=== PATIENT | male | born 1965 | race Caucasian/White ===

== ENCOUNTER 2022-05-08 07:54 | Outpatient (CLI) | payer BC, SELFPAY ==
--- NOTE | 2022-05-08 08:00 | CRLHL7_ITS ---
For Patients: As a result of the Cures Act, medical imaging exams and procedure reports are released immediately into your electronic medical record. You may view this report before your referring provider. If you have questions, please contact your health care provider. Indication: Sinusitis Technique: Performed without IV contrast Comparison: None available Findings: Frontal sinuses: Minimal mucosal thickening within the inferior frontal sinuses. Ethmoid sinuses: Mild mucosal thickening within both ethmoid sinuses. Maxillary sinuses: Near complete opacification of the left maxillary sinus with obstruction of the sinus drainage pathway. Mild mucosal thickening right maxillary sinus with patency of the right sinus drainage pathway. Sphenoid sinuses: Mild mucosal thickening is present. There is partial obstruction of the right sphenoethmoidal recess and patency of the left sphenoethmoidal recesses. Nasal Cavity: Extensive opacification of the left nasal cavity noted with obscuration of the turbinate mucosa. Mild nodularity of the inferior turbinates mucosa on the right. Rightward nasal septal deviation. No TMJ abnormalities identified. The visualized portions of the orbits, intracranial contents and upper soft tissue neck are grossly negative. Impression: 1. Severe left maxillary sinus disease with obstruction of the sinus drainage pathway. There is adjacent extensive opacification of the left nasal cavity which could represent mucus or polyps. 2. Mild sinus disease elsewhere. Rightward curvature of the nasal septum. Please note that all CT scans at this facility use dose modulation, iterative reconstruction, and/or weight-based dosing when appropriate to reduce radiation dose to as low as reasonably achievable. Dictated by Semaj Blanchard MD @ 05/08/2022 8:56:28 AM (Electronically Signed)
== END 2022-05-08 07:55 | disposition home or self-care (01) ==
LOC: CT 07:54
PROVIDERS: PCP Family Medicine; Visit Provider Otolaryngology
DX: J34.89 Other specified disorders of nose and nasal sinuses (principal); J32.0 Chronic maxillary sinusitis; J34.2 Deviated nasal septum; Z87.09 Personal history of other diseases of the respiratory system
CPT/HCPCS: 70486

== ENCOUNTER 2022-05-22 08:19 | Outpatient (CLI) | payer BC, SELFPAY ==
[2022-05-22 08:46] LABS: Hemoglobin A1C* 6.4 % (0-5.6)
[2022-05-22 15:02] LABS: Glucose* 126 mg/dL (60-115)
--- OUTSIDE RECORDS SUMMARY | 2022-06-11 18:24 | XMS_ITS | Encounter Summary ---
:1965 Author Organization [facility] Address [address] [place] [address] Care Team Providers Name Role Phone Unavailable Primary Care Provider Unavailable Reason for Visit Outpatient (Routine) - Closed Specialty Diagnoses / Procedures Referred By Contact Refer red To Contact Diagnoses Apnea Sleep Obstructive Maggie Doshi M.D., [facility] Procedures Polysomnography (PSG): Full PAP Trial; CPAP, Flex, Bilevel S Mode DE PSG >=6 YRS W CPAP M.P.H. [address], [place] [phone] Referral ID Status Reason Start Date Expiration Date Visits Requ ested Visits Authorized [id number] Closed 05/17/2021 07/15/2021 1 1 Encounter Details Date Type Department Care Team Description 05/30/2021 Diagnostic Department of Sleep Maggie Doshi Apne a Sleep Obstructive Medicine in [place], M.P .H. [place] [address] [address] [facility] [place] [phone] Social History Tobacco Use Types Packs/Day Years Used Date Smoking Tobacco: Former Cigarettes Quit : 12/04/2016 Smokeless Tobacco: Never Alcohol Habits Answer Date Recorded How often do you have a drink containing alcohol? 2-4 times a month 05/10/2021 How many drinks containing alcohol do you have on a 1 or 2 05/10/2021 typical day when you are drinking? How often do you have six or more drinks on one Less than mo nthly 05/10/2021 occasion? Comment: Not asked Social Isolation Answer Date Recorded In a typical week, how many times do you More than three cailin es a week 05/10/2021 talk on the phone with family, friends, or neighbors? How often do you get together with friends Twice a week 05/10/2021 or relatives? How often do you attend worship or Never 2020 christian services? Do you belong to any clubs or No 05/10/2021 organizations such as worship groups, unions, fraternal or athletic groups, or school groups? How often do you attend meetings of the 1 to 4 times per yea r 05/10/2021 clubs or organizations you belong to? Are you now , , , 05/10/2021 , never or living with a partner? Physical Activity Answer Date Recorded On average, how many days per week do you engage in moderate to 1 day 05/10/2021 strenuous exercise (like walking fast, running, jogging, dancing, swimming, biking, or other activities that cause a light or heavy sweat)? On average, how many minutes do you engage in exercise at th is 10 min 05/10/2021 level? Stress Answer Date Recorded Do you feel stress - tense, restless, nervous, or anxious, R ather much 05/10/2021 or unable to sleep at night because your mind is troubled all the time - these days? Financial Resource Strain Answer Date Recorded How hard is it for you to pay for the very basics like Not h shellie at all 05/10/2021 food, housing, medical care, and heating? Food Insecurity Answer Date Recorded Within the past 12 months, you worried that your food would Never true 05/10/2021 run out before you got money to buy more. Within the past 12 months, the food you bought just didn't N ever true 05/10/2021 last and you didn't have money to get more. Transportation Needs Answer Date Recorded In the past 12 months, has lack of transportation kept you f rom No 05/10/2021 medical appointments or from getting medications? In the past 12 months, has lack of transportation kept you f rom No 05/10/2021 meetings, work, or getting things needed for daily living? Housing Stability Answer Date Recorded In the last 12 months, was there a time when you were not No 05/10/2021 able to pay the mortgage or rent on time? In the last 12 months, how many places have you lived? Not a sked In the last 12 months, was there a time when you did not hav e No 05/10/[address] to sleep or slept in a senior living (including now)? Education Answer Date Recorded What is the highest level of school Bachelor's degree (e.g., BA, AB, 05/10/2021 you have completed or the highest BS) degree you have received? Sex Assigned at Date Recorded Male 09/17/2021 9:13 AM [employer] documented as of this encounter Plan of Treatment Not on filedocumented as of this encounter Procedures Procedure Name Priority Date/Time Associated Diagnosis Comme nts DE PSG >=6 YRS W Routine 05/31/2021 4:03 AM Apnea Sleep Resul ts for this CPAP CDT Obstructive procedure are i n the results section. documented in this encounter Results Polysomnography (PSG): Full PAP Trial; CPAP, Flex, Bilevel S Mode (05/31/2021 4:03 AM CDT) Specimen (Source) Anatomical Location Collection Method / Collectio n Time Received Time / Laterality Volume Narrative ONBASE - 06/04/2021 1:33 PM CDT THERAPEUTIC PAP TITRATION Summary A therapeutic trial of CPAP (continuous positive airway pressure) was tried, using a Dora View size medium in [facility]. ??Using CPAP at a pressure of Twelve cm H2O with a CFlex of 0, the disordered breathing noted during the diagnostic study was well-controlled . ??Supplemental oxygen was not used.. ??A chin-strap was not used. ??Ox ygen saturation remained at or above an SpO2 of 90%, 100% of the time. ?? Clinical Interpretation Successful trial of positive airway pres sure (PAP). ??Study limitations: No technical limitations occurred during study.. ??Patient should be treated with an Dora View size medium m ask set to 12 cm water pressure in accordance with this titration study. Maggie Doshi M.D., M.P.[facility] SLEEP CENTER ORDERABLES Performing Organization Address City/State/ZIP Code Phon e Number ONBASE ONBASE NA documented in this encounter Visit Diagnoses Diagnosis Apnea Sleep Obstructive documented in this encounter
--- OUTSIDE RECORDS SUMMARY | 2022-06-11 18:24 | XMS_ITS | Encounter Summary ---
:1965 Author Organization [facility] Address [address] [place] [address] Care Team Providers Name Role Phone Unavailable Primary Care Provider Unavailable Reason for Referral Outpatient (Routine) - Closed Specialty Diagnoses / Procedures Referred By Contact Refer red To Contact Sleep Medicine Maggie Doshi M.D., [facility] M[facility] [address] [place] [phone] Referral ID Status Reason Start Date Expiration Date Visits Requ ested Visits Authorized [id number] Closed 06/21/2021 06/21/2022 1 1 Reason for Visit Reason Comments Sleep study results Outpatient (Routine) - Closed Specialty Diagnoses / Procedures Referred By Contact Refer red To Contact Sleep Medicine Maggie Doshi M.D., [facility] Rees M[facility] [address] [place] [address] Referral ID Status Reason Start Date Expiration Date Visits Requ ested Visits Authorized [id number] Closed 05/10/2021 05/10/2022 1 1 Encounter Details Date Type Department Care Team Description 06/21/2021 Office Visit Department of Maggie Doshi, Apnea Slee p Obstructive Neurology in [place], M.[facility] (Primary Dx) [place], [place] [address] [phone] Social History Tobacco Use Types Packs/Day Years [...] or relatives? How often do you attend bahai or Never 2020 denominational services? Do you belong to any clubs or No 05/10/2021 organizations such as bahai groups, unions, fraternal or athletic groups, or [...] place to sleep or slept in a half-way (including now)? Education Answer Date Recorded What is the highest level of school Bachelor's degree (e.g., BA, AB, 05/10/2021 you have completed or the highest BS) degree you have received? Sex Assigned at Date Recorded Male 09/17/2021 9:13 AM [employer]ERSONAL[employer] documented as of this encounter Last Filed Vital Signs Vital Sign Reading Time Taken Comments Blood Pressure 137/85 06/21/2021 8:30 AM CDT Pulse 81 06/21/2021 8:30 AM CDT Temperature - - Respiratory Rate - - Oxygen Saturation - - Inhaled Oxygen Concentration - - Weight 145 kg (319 lb 7.1 oz) 06/21/2021 8:30 AM CDT Height - - Body Mass Index 42.15 05/10/2021 9:12 AM CDT documented in this encounter Progress Notes Maggie Doshi M.D., M.P.H. - 06/21/2021 8:45 AM CDT Sleep Clinic SUBJECTIVE HISTORY OF PRESENT ILLNESS This patient returns after his CPAP titration. Prior diagnostic study showed an apnea-hypopnea indexof over 52. The full night of titration performed on 05/31/2021 found that with a an Dora View, fullface mask and pressure set to 12 cm water pressure he was successfully treated even while supine andwithout a chinstrap. 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 He is optimistic that he will successfully betreated this time. Are reviewed care of his machine and equipment have given him [facility] Sleep Medicine handout. He has chosen [facility]. MEDICAL HISTORY No past medical history on file. SURGICAL HISTORY No past surgical history on file. CURRENT MEDICATIONS Current Outpatient Medications: ??? amLODIPine (NORVASC) 5 mg tablet, Take 5 mg by mouth daily., Disp: , Rfl: ??? ascorbic acid, vitamin C, (VITAMIN C) 500 mg tablet, Take 500 mg by mouth daily., Disp: , Rfl: ??? escitalopram (LEXAPRO) 10 mg tablet, Take 10 mg by mouth daily., Disp: , Rfl: ??? multivitamin (Multiple Vitamins) tablet, daily., Disp: , Rfl: ??? simvastatin (ZOCOR) 20 mg tablet, Take 20 mg by mouth daily., Disp: , Rfl: ??? DME CPAP, DME Order, Disp: 1 Device, Rfl: 11 ??? zaleplon (SONATA) 10 mg capsule, Take 1 capsule (10 mg total) by mouth at bedtime for 14 days., Disp: 14 capsule, Rfl: 1 ALLERGIES Allergies Allergen Reactions ??? Varenicline Other (see comments) Swollen throat FAMILY HISTORY No family history on file. SOCIAL HISTORY Social History Socioeconomic History ??? Marital status: Choose Not to Disclose Spouse name: Not on file ??? Number of children: Not on file ??? Years of education: Not on file ??? Highest education level: Bachelor's degree (e.g., BA, AB, BS) Occupational History ??? Not on file Tobacco Use ??? Smoking status: Former Smoker Types: Cigarettes Quit date: 12/04/2016 Years since quittin.5 ??? Smokeless tobacco: Never Used Vaping Use ??? Vaping Use: never used Substance and Sexual Activity ??? Alcohol use: Not on file ??? Drug use: Not on file ??? Sexual activity: Not on file Other Topics Concern ??? Not on file Social History Narrative ??? Not on file Social Determinants of Health Financial Resource Strain: Low Risk ??? Difficulty of Paying Living Expenses: Not hard at all Food Insecurity: No Food Insecurity ??? Worried About Running Out of Food in the Last Year: Never true ??? Ran Out of Food in the Last Year: Never true Transportation Needs: No Transportation Needs ??? Lack of Transportation (Medical): No ??? Lack of Transportation (Non-Medical): No Physical Activity: Insufficiently Active ??? Days of Exercise per Week: 1 day ??? Minutes of Exercise per Session: 10 min Stress: Stress Concern Present ??? Feeling of Stress : Rather much Social Connections: Moderately Isolated ??? Frequency of Communication with Friends and Family: More than three times a week ??? Frequency of Social Gatherings with Friends and Family: Twice a week ??? Attends Tenriism Services: Never ??? Active Member of Clubs or Organizations: No ??? Attends Club or Organization Meetings: 1 to 4 times per year ??? Marital Status: Intimate Partner Violence: ??? Fear of Current or Ex-Partner: ??? Emotionally Abused: ??? Physically Abused: ??? Sexually Abused: OBJECTIVE PHYSICAL EXAMINATION BP 137/85 (BP Location: Right arm, Patient Position: Sitting, Cuff Size: Large) Pulse 81 Wt (!) 145 kg BMI 42.15 kg/m?? Neurological Exam Cognition: Alert and oriented x 4. Cranial Nerves: II-XII intact and symmetric. Gait: Normal. ASSESSMENT / PLAN Encounter Diagnoses Name Primary? Apnea Sleep Obstructive Yes I have ordered CPAP therapy with the Dora View mask as described above. I will plan to see back in two months. Vent all the patient's questions the best my ability. Prior spirits with CPAP therapy so is not a novice. I personally spent 25 minutes in care of the patient today. Time includes both non face to face and face to face patient care. Patient was counseled regarding weight as a risk factor for sleep disordered breathing. The patient was counseled on driving while drowsy. Maggie Doshi M.D., M.P.H. documented in this encounter Plan of Treatment Scheduled Referrals Name Type Priority Associated Diagnoses Order S [facility] Sleep Medicine Outpatient Referral Routine Expect ed: office visit 08/21/2021 (clinic) (Approximate), Expires: 06/21/2024 documented as of this encounter Visit Diagnoses Diagnosis Apnea Sleep Obstructive - Primary documented in this encounter
--- OUTSIDE RECORDS SUMMARY | 2022-06-11 18:24 | XMS_ITS | Encounter Summary ---
:1965 Author Organization [facility] Address [address] [place] [address] Care Team Providers Name Role Phone Unavailable Primary Care Provider Unavailable Reason for Referral Outpatient (Routine) - Authorized Specialty Diagnoses / Procedures Referred By Contact Refer red To Contact Sleep Medicine Maggie Doshi M.D., [facility] M[facility] [address] [phone] Referral ID Status Reason Start Date Expiration Date Visits V isits Requested Authorized [id number] Authorized 09/20/2021 09/20/2022 1 1 [employer] Reason for Visit Reason Comments Cpap Follow-up Outpatient (Routine) - Closed Specialty Diagnoses / Procedures Referred By Contact Refer red To Contact Sleep Medicine Maggie Doshi M.D., [facility] M[facility] [address] [place] [phone] Referral ID Status Reason Start Date Expiration Date Visits Requ ested Visits Authorized [id number] Closed 06/21/2021 06/21/2022 1 1 Encounter Details Date Type Department Care Team Description 09/20/2021 Office Visit Department of Maggie Doshi, Apnea Slee p Obstructive Neurology in [place], M[facility] (Primary Dx) [place], [place] [address] [phone] Social History Tobacco Use Types Packs/Day Years [...] or relatives? How often do you attend orthodox or Never 2020 jain services? Do you belong to any clubs or No 05/10/2021 organizations such as orthodox groups, unions, fraternal or athletic groups, or [...] at Date Recorded Male 09/17/2021 9:13 AM [employer] documented as of this encounter Last Filed Vital Signs Vital Sign Reading Time Taken Comments Blood Pressure 139/79 09/20/2021 1:35 PM [employer] Pulse 89 09/20/2021 1:35 PM [employer] Temperature - - Respiratory Rate - - Oxygen Saturation - - Inhaled Oxygen Concentration - - Weight 148 kg (326 lb 4.5 oz) 09/20/2021 1:35 PM [employer] Height - - Body Mass Index 43.05 05/10/2021 9:12 AM CDT documented in this encounter Consult Notes Maggie Doshi M.D., M.P.[facility]. - 09/20/2021 1:45 PM CST Sleep Clinic SUBJECTIVE HISTORY OF PRESENT ILLNESS This patient returns for follow-up on his sleep apnea machine. He says that if the 1st night he slept very well and felt more rested but subsequently has had difficulty tolerating his CPAP therapy. He has a fullface mask but says that he the left side of his nose stays congested and nothing seems to help. Does not use antihistamines nor does he use Flonase. He said that when he lays on the right sideit does not seem to improve the passage of air through the left side. He says because his nose is congested he is breathing through his mouth and his mouth is getting dry he is developing a white coating on his tongue. He tells me that not only is the humidifier on his CPAP machine on but he also has another one in the bedroom. The download from his machine shows that he is using it sparingly perhaps six of the past 31 days. Average use is 6 hours and 24 minutes when he uses it. Pressure is AutoSet between 10 and 15 cm water pressure but his median pressure is 13.2 and maximum is 14.8 suggesting he might need higher pressure. His median leak per minute is 5.8 with 95th percentile being 27. [place] Sleepiness Score: Seven MEDICAL HISTORY No past medical history on [...] Order, Disp: 1 Device, Rfl: 11 ??? escitalopram (LEXAPRO) 10 mg tablet, Take 10 mg by mouth daily., Disp: , Rfl: ??? multivitamin (Multiple Vitamins) tablet, daily., Disp: , Rfl: ??? simvastatin (ZOCOR) 20 mg tablet, Take 20 mg by mouth daily., Disp: , Rfl: ??? DME CPAP, DME Order, Disp: 1 each, Rfl: 11 ??? fluticasone propionate (FLONASE) 50 mcg/actuation nasal spray, Administer 2 sprays into each nostril daily., Disp: 16 g, Rfl: 12 ??? zaleplon (SONATA) 10 mg capsule, Take 1 capsule (10 mg total) by mouth at bedtime for 14 days., Disp: 14 capsule, Rfl: 1 ALLERGIES Allergies Allergen Reactions ??? Varenicline Other (see comments) Swollen throat FAMILY HISTORY No family history on file. SOCIAL HISTORY Social History Socioeconomic History ??? Marital status: Single Spouse name: Not on file ??? Number of children: Not on file ??? Years of education: Not on file ??? Highest education level: Bachelor's degree (e.g., BA, AB, BS) Occupational History ??? Not on file Tobacco Use ??? Smoking status: Former Smoker Types: Cigarettes Quit date: 12/04/2016 Years since quittin.7 ??? Smokeless tobacco: Never Used Vaping Use [...] and Family: Twice a week ??? Attends Denominational Services: Never ??? Active Member of Clubs or Organizations: No ??? Attends Club or Organization Meetings: 1 to 4 times per year ??? Marital Status: Intimate Partner Violence: Not on file Housing Stability: Unknown ??? Unable to Pay for Housing in the Last Year: No ??? Number of Places Lived in the Last Year: Not on file ??? Unstable Housing in the Last Year: No OBJECTIVE PHYSICAL EXAMINATION BP 139/79 (BP Location: Left arm, Patient Position: Sitting, Cuff Size: Large) Pulse 89 Wt (!) 148 kg BMI 43.05 kg/m?? His left nares are substantially more edematous and boggy compared to the right Lungs: Clear Neurological Exam Cognition: Alert and oriented x 4. Cranial Nerves: II-XII intact and symmetric. Motor: Full strength throughout the upper and lower extremities bilaterally both proximally and distally. Normal tone. No pronator drift. No tremor. Reflexes: Normal and symmetric at the biceps, triceps, brachioradialis, knees, and ankles. Sensory: Normal sensation to touch. Cerebellar: ARMs normal. Gait: Normal. ASSESSMENT / PLAN Encounter Diagnoses Name Primary? Apnea Sleep Obstructive Yes Not sure why his left nares so boggy but I am going to give him Flonase and encouraged him to try his CPAP machine again making sure that the pressure is increased to 18 but also make sure the humidifier is on. I have also asked him to visit with Dr. Kathleen to see if he has any other suggestions about what to do about his chronically congested left nares if the above interventions are not successful. I personally spent 30 minutes in care of the patient today. Time includes both non face to face and face to face patient care. Patient was counseled regarding weight as a risk factor for sleep disordered breathing. The patient was counseled on driving while drowsy. Maggie Doshi M.D., M.P.[facility]. [employer] documented in this encounter Plan of Treatment Scheduled Referrals Name Type Priority Associated Diagnoses Order S [facility] Sleep Medicine Outpatient Referral Routine Expect ed: office visit 09/20/2022 (clinic) (Approximate), Expires: 09/20/2024 documented as of this encounter Visit Diagnoses Diagnosis Apnea Sleep Obstructive - Primary documented in this encounter
--- OUTSIDE RECORDS SUMMARY | 2022-06-11 18:24 | XMS_ITS | Encounter Summary ---
:1965 Author Organization [facility] Address [address] [place] [address] Care Team Providers Name Role Phone Unavailable Primary Care Provider Unavailable Encounter Details Date Type Department Care Team Description 05/28/2021 Lab Urgent [facility] [place], Screening Examination For [place], M.P.H. Viral Disease [address] [place] [address] [place], [place] [phone] (Wo rk) Social History Tobacco Use Types Packs/Day Years [...] or relatives? How often do you attend druze or Never 2020 hindu services? Do you belong to any clubs or No 05/10/2021 organizations such as druze groups, unions, fraternal or athletic groups, or [...] place to sleep or slept in a skilled nursing (including now)? Education Answer Date Recorded What is the highest level of school Bachelor's degree (e.g., BA, AB, 05/10/2021 you have completed or the highest BS) degree you have received? 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 documented in this encounter Results SARS Coronavirus-2 RNA, V Asymptomatic (05/28/2021 4:20 PM CDT) [facility] Method Time Signature SARS-CoV-2 Swab, 05/29/2021 MKTO Specimen Nasopharynx 1:41 AM CDT Source SARS CoV-2 Undetected Undetected 05/29/2021 MKTO RNA, TMA 1:41 AM CDT Comment: SARS-CoV-2 RNA absent. This result does not rule out COVID-19 in the patient, as the sensitivity of the test depends o n the timing of the specimen collection and the quality of the specim en. Result should be correlated with patient's history and clinical presentat ion. ----ADDITIONAL INFORMATION---- This molecular amplification test was pe rformed using the Aptima SARS-CoV-2 assay ([employer] on the Aspire Bariatricss tem under emergency use authorization (EUA) by the U.S. Food and Drug Administ ration. Fact sheets for this EUA assay can be fo und at the following links: For Healthcare Providers: https://www.fd a.gov/media/781619/download For Patients: https://www.fda.gov/media/ 705780/download Specimen Anatomical Collection Method Collection Time Receive d Time (Source) Location / / Volume Laterality Varies 05/28/2021 4:20 PM 7:24 (Nasopharynx) CDT PM CDT Maggie Doshi M.D., M.P.H. LAB MICROBIOLOGY - GENERAL ORDERABLES Performing Organization Address City/State/ZIP Code Phon e Number [facility]- [address] [place] [phone] [place] [address] [place] [address] System in [address] documented in this encounter Visit Diagnoses Diagnosis Screening Examination For Viral Disease documented in this encounter Additional Health Concerns Infection Onset Date Last Indicated Resolved Time COVID19 Pending 05/27/2021 05/28/2021 05/29/2021 1:48 AM CDT documented as of this encounter
--- OUTSIDE RECORDS SUMMARY | 2022-06-11 18:24 | XMS_ITS | Encounter Summary ---
:1965 Author Organization [facility] Address [address] [place] [address] Care Team Providers Name Role Phone Unavailable Primary Care Provider Unavailable Reason for Visit Reason Comments Med Refill Encounter Details Date Type Department Care Team Description 10/04/2021 Refill Department of Sleep Medicine in Maggie Doshi M.D., Med Refill [place], [place] M.P.H. [address] [place] [address] [place] [phone] (Wo rk) Social History Tobacco Use [...] or relatives? How often do you attend adventism or Never 2020 rastafari services? Do you belong to any clubs or No 05/10/2021 organizations such as adventism groups, unions, fraternal or athletic groups, or [...] place to sleep or slept in a assisted (including now)? Education Answer Date Recorded What is the highest level of school Bachelor's degree (e.g., BA, AB, 05/10/2021 you have completed or the highest BS) degree you have received? 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 Requested Prescriptions Pending Prescriptions Disp Refills ??? fluticasone propionate (FLONASE) 50 mcg/actuation nasal spray [Pharmacy Med Name: FLUTICASONE PROP 50 MCG SPRAY] 16 g 0 Pharmacy comment: Alternative Requested:THE PRESCRIBED MEDICATION IS NOT COVERED BY INSURANCE. PLEASE CONSIDER CHANGING TO ONE OF THE SUGGESTED COVERED ALTERNATIVES. Pharmacy: [facility] TRIC TOOL REPAIRER documented in this encounter Plan of Treatment Not on filedocumented as of this encounter Visit Diagnoses Not on filedocumented in this encounter
--- OUTSIDE RECORDS SUMMARY | 2022-06-11 18:24 | XMS_ITS | Encounter Summary ---
:1965 Author Organization [facility] Address [address] [place] [address] Care Team Providers Name Role Phone Unavailable Primary Care Provider Unavailable Reason for Referral Outpatient (Routine) - Closed Specialty Diagnoses / Procedures Referred By Contact Refer red To Contact Sleep Medicine Maggie Doshi M.D., [facility] M.P.H. [address] [phone] Referral ID Status Reason Start Date Expiration Date Visits Requ ested Visits Authorized [id number] Closed 05/10/2021 05/10/2022 1 1 Outpatient (Routine) - Closed Specialty Diagnoses / Procedures Referred By Contact Refer red To Contact Diagnoses Apnea Sleep Obstructive Maggie Doshi M.D., [facility] Procedures Polysomnography (PSG): Full PAP Trial; CPAP, Flex, Bilevel S Mode DC PSG >=6 YRS W CPAP M.P.H. [address] [place] [phone] Referral ID Status Reason Start Date Expiration Date Visits Requ ested Visits Authorized [id number] Closed 05/17/2021 07/15/2021 1 1 Reason for Visit Reason Comments [facility] App[facility] Request (Routine) - Closed Specialty Diagnoses / Procedures Referred By Contact Refer red To Contact Neurology Referral ID Status Reason Start Date Expiration Date Visits Requ raeannd Visits Authorized [id number] Closed 04/03/2021 04/03/2022 1 1 Encounter Details Date Type Department Care Team Description 05/10/2021 Comprehensive Visit Department of Maggie Doshi Neurology in [place], Obstructive ([place], [place] M.P.H. Dx) [address] [facility] [address] [place] [phone] Social History Tobacco Use Types Packs/Day Years [...] or relatives? How often do you attend taoism or Never 2020 nondenominational services? Do you belong to any clubs or No 05/10/2021 organizations such as taoism groups, unions, fraternal or athletic groups, or [...] minutes do you engage in exercise at is 10 min 05/10/2021 level? Stress Answer [...] place to sleep or slept in a jail (including now)? Education Answer Date Recorded What is the highest level of school Bachelor's degree (e.g., BA, AB, 05/10/2021 you have completed or the highest BS) degree you have received? 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 - 05/10/2021 9:30 AM CDT Images from the original note were not included. Patient Education About Your Polysomnogram Your health care provider has asked that you have a sleep study test called a polysomnogram, or PSG.This test can help to find out why you are having sleep problems. This information describes the polysomnogram and tells you what usually happens during the test. What is a polysomnogram (PSG)? A PSG is an overnight sleep study. Small wires are attached to your scalp, face, chest and legs. These wires measure brain, heart and muscle activity as you sleep. Your breathing is monitored using various devices. You will sleep overnight at the sleep center. Most people sleep better than they think they will. Ifyou think you may have trouble sleeping, talk with your health care provider at least 24 hours before your sleep study. Preparation for your polysomnogram It is important that you follow any preparation instructions from your health care provider. If you do not, your appointment may need to be rescheduled. If you have any questions about the preparation for this test, ask a member of your health care team. If you need assisted care, a responsible adult who can provide the necessary care must come with youto the test. If no responsible adult is present, your test may need to be rescheduled. The day before your sleep study, try to follow your normal daily schedule, if possible. The day of your test: ?? Do not nap. ?? Shower or bathe. Wash and dry your hair. ?? Shave if you normally do so. This helps the testing equipment stay on your skin during the test. ?? Do not use makeup, lotions, oils, gels, conditioners or other hair products. Medications Bring to the center ONLY those medications you cannot take right before arriving at the center or when returning to your hotel or home. Please take all your other evening medications before coming to the center for your sleep study. If you sometimes need a pain reliever during the night for chronic pain, arthritis, or headaches, bring that medication. Also bring any other medications, such as an inhaler or nitroglycerin, which you would normally take with you when going away from home. If you take prescription sleep medication, bring it with you. Do not take it before you arrive for your sleep study. Diet Unless you are told something else, do not eat or drink anything that contains alcohol or caffeine after 2:00 p.m. the day of your test. Eat an evening meal at your usual time before coming to the center. If you have a bedtime snack routine, please bring your own snack to the center. If you have diabetes, bring any medications, food or drink you need to keep your blood sugars at theright levels. Medical equipment or supplies If you require any special medical equipment or supplies such as a blood glucose meter or ostomy supplies, please bring them with you. The sleep center cannot provide such items. Other items to bring Bring pajamas or comfortable clothing to sleep in. Your sleep wear should have two pieces, such as aT-shirt and sweatpants or shorts. Bring any personal care items that you use at bedtime and in the morning. Examples include your toothbrush, toothpaste, comb and hydraulic chair assembler. If you wish, bring items that help you sleep, such as a favorite pillow. What happens during the test? Report to the center at the time you are scheduled. If you use tobacco, tell the technologist and talk about guidelines for tobacco use during your sleep test. Small wires are glued to your scalp, face, chest and legs. The glue has a strong smell. You may feela scratching sensation when the wires are put on your skin. Your breathing will be recorded using several different devices. A small clip is attached to your ear or hand. The clip checks on oxygen levels in your blood. Small wires are placed in front of your nose and mouth to sense the movement of air as you breathe. Elastic bands are put around your chest andstomach (abdomen) to find out how much work it takes for you to breathe. You will be able to walk and move around while the wires and other devices are in place. A technologist in another room monitors the information from the equipment attached to your body andfrom a video recording. You can contact the technologist from your room at any time during the test. Your room has a private bathroom. If you need to get up to use it during the night, tell the technologist. He or she can come in to assist you. You may get up as many times as you need to during the night. In the morning, after the study is done, a technologist removes the wires and other monitoring devices. Then you can leave the center. Results of your polysomnogram Ask your health care provider when and how you will get your test results. It is important to reviewthe results with your health care provider or sleep specialist. If you have questions about your PSG test or this information, please talk with your health care provider. This material is for your education and information only. This content does not replace medical advice, diagnosis or treatment. New medical research may change this information. If you have questions about a medical condition, always talk with your health care provider. ? 2017 [employer] ([facility]). All rights reserved. [id number] documented in this encounter Consult Notes Maggie Doshi M.D., M.P.H. - 05/10/2021 9:30 AM CDT Sleep Clinic SUBJECTIVE HISTORY OF PRESENT ILLNESS 55-year-old patient has a long history of snoring a with awakening with heartburn a and frequent nocturia. He has had significant weight gain. A diagnostic study performed from [facility] ( [facility]) for 12/23/2018 demonstrated an apnea-hypopnea index of 52.3. A trial of CPAP the rapy was not tolerated patient is here to find out about other options. He has done some research inwe discussed the inspire device. I pointed out that his sleep disordered breathing is probably too severe and his BMI is probably too high to qualify for placement of this device. I also explained thatthe stimulation the hypoglossal nerve can be felt by the patient and so he would have to be deep sleep were not to notice this. 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 I discussed with him the option of having a night in the sleep lab for a full titration wherein theywould be able to try to different styles of masks and pressures. He did not try hypnotic agent when he started CPAP therapy. He has had nasal polyps removed as well as tonsils and adenoids. He has noted hypnagogic hallucinations. Carlisle Sleepiness Score: Seven Snoring Tired Observed snoring/Gasping Pressure BMI over 35 Age over 50 Neck over 17/43 M 15/41 F Gender M STOP-BANG: Five MEDICAL HISTORY No past medical history on [...] mg by mouth daily., Disp: , Rfl: ALLERGIES Allergies Allergen Reactions ??? Varenicline Other [...] Types: Cigarettes Quit date: 12/04/2016 Years since quittin.4 ??? Smokeless tobacco: Never Used Vaping Use [...] and Family: Twice a week ??? Attends Jainism Services: Never ??? Active Member of Clubs or Organizations: No ??? Attends Club or Organization Meetings: 1 to 4 times per year ??? Marital Status: Intimate Partner Violence: ??? Fear of Current or Ex-Partner: ??? Emotionally Abused: ??? Physically Abused: ??? Sexually Abused: OBJECTIVE PHYSICAL EXAMINATION BP 144/80 (BP Location: Left arm, Patient Position: Sitting, Cuff Size: Large) Pulse 89 Ht 185.4cm Wt (!) 145 kg SpO2 97% Comment: room air BMI 42.17 kg/m?? HEENT Mallampati score: Four Macroglossia: + Over jet: Negative Retrognathia: Negative Lungs: Clear to auscultation Neck Circumference: 40 cm Neurological Exam Cognition: Alert and oriented x [...] Diagnoses Name Primary? Apnea Sleep Obstructive Yes This patient with severe sleep apnea that was demonstrated on a home sleep apnea test in February of 2019. Given the severity of his sleep disordered breathing I think it is unlikely that a mandibular advancement device, positional therapy or even the inspire device will adequately address his sleep disordered breathing. I think it is a better plan to try night of titration where different masks and be tried if her pressures to try to find a combination that will be suitable for this patient. He is in agreement with this plan. I will probably also give him a hypnotic agent when he 1st starts trying athome to help get the sleep as this is being has been demonstrated to improve adherence early on. Total time with patient today was 45 minutes. Patient was counseled regarding weight as a risk factor for sleep disordered breathing. The patientwas counseled on driving while drowsy. Maggie Doshi M.D., M.P.H. documented in this encounter Plan of Treatment Scheduled Referrals Name Type Priority Associated Order Schedule Diagnoses Sleep Medicine Outpatient Referral Routine 1 Occu rrences office visit starting 2020 (clinic) until 4 documented as of this encounter Results Polysomnography (PSG): Full PAP Trial; CPAP, Flex, Bilevel S Mode (05/31/2021 4:03 AM CDT) Specimen (Source) Anatomical Location Collection Method / Collectio n Time Received Time / Laterality Volume Narrative ONBASE - 06/04/2021 1:33 PM CDT THERAPEUTIC PAP TITRATION Summary A therapeutic trial of CPAP (continuous positive airway pressure) was tried, using a Dora View size medium in [facility]. ??Using CPAP at a pressure of Twelve [...] ??Study limitations: No technical limitations occurred during e study.. ??Patient should be treated with an Dora View size medium m ask set to 12 cm water pressure in accordance with this titration study. Maggie Doshi M.D., M.P.H. SLEEP CENTER ORDERABLES Performing Organization Address City/State/ZIP Code Phon e Number ONBASE ONBASE NA documented in this encounter Visit Diagnoses Diagnosis Apnea Sleep Obstructive - Primary Apnea Sleep Obstructive documented in this encounter
--- OUTSIDE RECORDS SUMMARY | 2022-06-11 18:24 | XMS_ITS | Clinical Summary ---
:1965 Author Organization [facility] Address [address] [place] [address] Care Team Providers Name Role Phone Unavailable Primary Care Provider Unavailable Source Comments Patient records contain information from all sites at [facility]. For routine questions regarding patient records, call [phone] during business hours, M-F 8:00 AM - 5:00 PM Central Time. Record requests for emergency care only can be directed to [phone] at any time.[facility] Allergies Active Allergy Reactions Severity Noted Date Comments Varenicline Other (see comments) 03/08/2021 Swollen throat Medications Medication Sig Dispensed Refills Start Date End Date Status amLODIPine (NORVASC) Take 5 mg by mouth 0 02/18/2021 Active 5 mg tablet daily. simvastatin (ZOCOR) Take 20 mg by 0 02/28/2021 Active 20 mg tablet mouth daily. escitalopram Take 10 mg by 0 04/12/2021 Ac tive (LEXAPRO) 10 mg mouth daily. tablet ascorbic acid, Take 500 mg by 0 Active vitamin C, (VITAMIN mouth daily. C) 500 mg tablet multivitamin daily. 0 Active (Multiple Vitamins) tablet zaleplon (SONATA) 10 Take 1 capsule (10 14 capsule 1 1 Active mg capsule mg total) by mouth at bedtime for 14 days. DME CPAPIndications: DME Order 1 Device 06/21/2021 Active Apnea Sleep Obstructive DME CPAPIndications: DME Order 1 each 09/20/2021 Active Apnea Sleep Obstructive fluticasone Administer 2 16 g 12 09/20/2021 Acti ve propionate (FLONASE) sprays into each 50 mcg/actuation nostril daily. nasal spray fluticasone Administer 1 spray 16 g 10/05/2021 Active propionate (FLONASE) into each nostril 50 mcg/actuation 2 (two) times a nasal spray day. Active Problems Problem Noted Date Apnea Sleep Obstructive 05/10/2021 Social History Tobacco Use Types Packs/Day Years [...] or relatives? How often do you attend hinduism or Never 2020 oriental orthodox services? Do you belong to any clubs or No 05/10/2021 organizations such as hinduism groups, unions, fraternal or athletic groups, or [...] place to sleep or slept in a residential (including now)? Education Answer Date Recorded What is the highest level of school Bachelor's degree (e.g., BA, AB, 05/10/2021 you have completed or the highest BS) degree you have received? 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 Height 185.4 cm (6' 1) 05/10/2021 9:12 AM CDT Body Mass Index 43.05 05/10/2021 9:12 AM CDT Plan of Treatment Health Maintenance Due Date Last Done Comments CT Colonography 1965 Cologuard 1965 Colonoscopy 1965 Colorectal Cancer Screening 1965 FIT 1965 Fasting Glucose for Diabetes 1965 Screening Fasting Lipid Panel 1965 HIV Screening 1965 Hepatitis B Vaccines (1 of 3 1965 - 3-dose series) Hepatitis C Screening 1965 Depression Screening (Annual 11/03/2021 PHQ-2) COVID-19 Vaccine (4 - Booster 01/04/2022 09/06/2021, for Pfizer series) 02/10/2021, 01/20/2021 Influenza Vaccine (#1) 2022 10/23/2021, 10/23/2020 DTaP,Tdap,and Td Vaccines (3 05/18/2030 05/18/2020, - Td or Tdap) 12/26/2009 Zoster Vaccines Completed 04/15/2021, 10/23/2020 Pneumococcal vaccine (0-64 Aged Out No lo nger eligible based years) on patient's age to complete this to [facility] Insurance Payer Benefit Plan / Subscriber ID Effective Dates Phone Addre ss Type Group BLUE CROSS ANTHEM BLUE [id number] 2019-Nusrat [phone] PO MIKEL [id number] PPO [facility] ACCESS t [address] [place] [address]
--- OUTSIDE RECORDS SUMMARY | 2022-06-11 18:24 | XMS_ITS | Encounter Summary ---
:1965 Author Organization [facility] Address [address] [place] [address] Care Team Providers Name Role Phone Unavailable Primary Care Provider Unavailable Encounter Details Date Type Department Care Team Description 10/04/2021 Orders Only Department of Sleep Medicine Maggie Doshi M.D., in [facility] M.P.[facility]. [address] [place] [address] [place], [place] [phone] (Wo rk) Social History Tobacco Use [...] or relatives? How often do you attend restoration or Never 2020 tenriism services? Do you belong to any clubs or No 05/10/2021 organizations such as restoration groups, unions, fraternal or athletic groups, or [...] place to sleep or slept in a halfway (including now)? Education Answer Date Recorded What is the highest level of school Bachelor's degree (e.g., BA, AB, 05/10/2021 you have completed or the highest BS) degree you have received? 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
== END 2022-05-22 08:20 | disposition home or self-care (01) ==
LOC: NFLDREF 08:22
PROVIDERS: PCP Family Medicine; Visit Provider Family Medicine
DX: R73.01 Impaired fasting glucose (principal); Z13.1 Encounter for screening for diabetes mellitus; I10 Essential (primary) hypertension; E78.5 Hyperlipidemia, unspecified; E66.01 Morbid (severe) obesity due to excess calories
CPT/HCPCS: 82947; 83036

== ENCOUNTER 2023-01-02 11:30 | Outpatient (CLI) | payer BC, SELFPAY | END 2023-01-02 11:31 | disposition home or self-care (01) | LOC: NFLDREF 01-09 14:59 | PROVIDERS: PCP Family Medicine; Referring Provider Family Medicine; Visit Provider Family Medicine | DX: I10 Essential (primary) hypertension (principal); E66.01 Morbid (severe) obesity due to excess calories; R73.01 Impaired fasting glucose; E78.5 Hyperlipidemia, unspecified | CPT/HCPCS: 80048 ==

== ENCOUNTER 2023-05-21 09:30 | Outpatient (CLI) | payer BC, SELFPAY | END 2023-05-21 09:31 | disposition home or self-care (01) | PROVIDERS: PCP Family Medicine; Visit Provider Family Medicine | DX: Z00.00 Encounter for general adult medical examination without abnormal findings (principal); R73.01 Impaired fasting glucose; I10 Essential (primary) hypertension; E78.5 Hyperlipidemia, unspecified; E66.01 Morbid (severe) obesity due to excess calories | CPT/HCPCS: 80053; 80061 ==

== ENCOUNTER 2023-09-04 09:41 | Outpatient (CLI) | payer BC, SELFPAY ==
--- NOTE | 2023-09-04 11:42 | W.ANESCHARGE ---
Anesthesia Charges Start Date/Time Anesthesia Start Date: 09/04/23 Anesthesia Start Time: 11:08 Stop Date/Time Anesthesia Stop Date: 09/04/23 Anesthesia Stop Time: 11:48
--- NOTE | 2023-09-04 11:53 | W.ANESCHARGE ---
Anesthesia Charges Start Date/Time Anesthesia Start Date: 09/04/23 Anesthesia Start Time: 11:08 Stop Date/Time Anesthesia Stop Date: 09/04/23 Anesthesia Stop Time: 11:48
== END 2023-09-04 09:42 | disposition home or self-care (01) ==
LOC: OP CLINIC 09:42
PROVIDERS: PCP Family Medicine; Visit Provider Surgery
DX: Z86.010 Personal history of colon polyps (principal); K63.5 Polyp of colon; K62.1 Rectal polyp
CPT/HCPCS: 00811; 45385; 88305; J2704

== ENCOUNTER 2023-09-17 08:34 | Outpatient (CLI) | payer BC, SELFPAY ==
--- NOTE | 2023-09-17 08:45 | CRLHL7_ITS ---
For Patients: As a result of the Cures Act, medical imaging exams and procedure reports are released immediately into your electronic medical record. You may view this report before your referring provider. If you have questions, please contact your health care provider. DIGITAL DIAGNOSTIC BILATERAL MAMMOGRAM USING TOMOSYNTHESIS AND COMPUTER-AIDED DETECTION RIGHT BREAST ULTRASOUND CLINICAL HISTORY: RIGHT breast lump. COMPARISON: None. TECHNIQUE: Digital BILATERAL mammogram in four projections. Tomosynthesis and CAD utilized. Real-time ultrasound imaging of RIGHT breast with imaging documentation. BREAST COMPOSITION: There are areas of scattered fibroglandular density. FINDINGS: 3D CC/MLO BILATERAL mammogram images submitted. No suspicious masses or architectural distortion. No suspicious calcifications or adenopathy. Targeted RIGHT breast ultrasound performed in area of concern at 6 o`clock 1 cm from the nipple. Normal subcutaneous tissues are present with normal adipose tissue. No suspicious mass or fluid collection. No abscess. IMPRESSION: No evidence of malignancy. RECOMMENDATIONS: Clinical follow-up. Results and recommendations discussed with the patient. BI-RADS Category 2: Benign A lay language report of this examination will be provided to the patient. Dictated by Semaj Blanchard MD @ 09/17/2023 10:56:45 AM jj/Dictated by: Semaj Blanchard MD @ 09/17/2023 10:56:00 AM (Electronically Signed)
--- NOTE | 2023-09-17 09:15 | CRLHL7_ITS ---
For Patients: As a result of the Cures Act, medical imaging exams and procedure reports are released immediately into your electronic medical record. You may view this report before your referring provider. If you have questions, please contact your health care provider. PLEASE SEE DIGITAL DIAGNOSTIC BILATERAL MAMMOGRAM PERFORMED SAME DAY CRL:treva tilley/Dictated by: Semaj Blanchard MD @ 09/17/2023 10:56:00 AM (Electronically Signed)
== END 2023-09-17 08:35 | disposition home or self-care (01) ==
LOC: MAMMO 08:34
PROVIDERS: PCP Family Medicine; Visit Provider Family Medicine
DX: N63.10 Unspecified lump in the right breast, unspecified quadrant (principal)
CPT/HCPCS: 76642; 77066; G0279

== ENCOUNTER 2024-06-10 10:02 | Outpatient (CLI) | payer BC, SELFPAY ==
--- OUTSIDE RECORDS SUMMARY | 2024-06-15 08:38 | XMS_ITS | Encounter Summary ---
Author Organization [place] Address [address] [facility] [place] [address] Care Team Providers Care Public Health Director Name Role Phone No Ref-Primary, Physician Primary Care Provider Tran Robbins PA-C Unavailable [phone] Grace Tafoya MD Unavailable [phone] Encounter Details Date Type Department Care Team (Latest Contact Info) Description 05/31/2024 Travel Social History Tobacco Use Types Packs/Day Years Used Date Smoking Tobacco: Former Cigarettes 1 20 1 - 11/03/2010 Smokeless Tobacco: Never Alcohol Use Standard Drinks/Week Comments Yes 0 (1 standard drink = 0.6 oz pur e alcohol) Adolescent Education Answer Date Record ed Getting School Help Needed Not on file 07/26 Sex and Gender Information Value Date Recorded Sex Assigned at Not on file Gender Identity Not on file Sexual Orientation Not on file documented as of this encounter Plan of Treatment Not on file documented as of this encounter Visit Diagnoses Not on filedocumented in this encounter Care Teams Public Health Director Relationship Specialty Start Date End Date No Ref-Primary, Physician PCP - General 04/08/23 Tran Robbins PA-C [address] [place] [id number] Assigned Surgical Provider 04/12/23 Grace Tafoya MD [address] [facility] [address] [facility] [address] [place], [place] [address] Otolaryngology 01/07/24 documented as of this encounter
--- OUTSIDE RECORDS SUMMARY | 2024-06-15 08:38 | XMS_ITS | Encounter Summary ---
Author Organization [place] Address [address] [facility] [address] Care Team Providers Care Cannoneer Name Role Phone No Ref-Primary, Physician Primary Care Provider Tran Robbins PA-C Unavailable [phone] Grace Tafoya MD Unavailable [phone] Reason for Referral * Diagnostic Imaging CT Scan (Routine) - Closed Specialty Diagnoses / Procedures Referred By Odilia t Referred To Contact Radiology. Diagnoses Chronic sinusitis, unspecified Nasal congestion Hypertrophy of nasal turbinates Procedures CT Sinus w/o Contrast Grace Tafoya MD [address] [facility] [address] [place] [address] [place] [address] [facility] [address] [place] [address] Referral ID Status Reason Start Date Expiration Date Visits Re quested Visits Authorized [id number] Closed 05/31/2024 05/31/2025 1 1 Reason for Visit * Reason Comments Consult * Consultation (Routine) - Pending Review Specialty Diagnoses / Procedures Referred By Contac t Referred To Contact Otolaryngology Diagnoses Chronic sinusitis, unspecified Nasal congestion Hypertrophy of nasal turbinates Generic External Data Department Referral ID Status Reason Start Date Expiration Date V isits Requested Visits Authorized [id number] Pending Review 01/05/2024 01/04/2025 1 1 Encounter Details Date Type Department Care Team (Late st Contact Info) Description 05/31/2024 3:00 PM CDT Office Visit [facility] [address] [place] [phone] Grace Tafoya MD [address] [facility] [address] [place] [address] Chronic maxillary sinusitis; Nasal congestion; Hypertrophy of nasal turbinates Social History Tobacco Use Types Packs/Day Years [...] on file documented as of this encounter Last Filed Vital Signs Vital Sign Reading Time Taken Comments Blood Pressure 155/98 05/31/2024 2:45 PM CDT Pulse 94 05/31/2024 2:45 PM CDT Temperature - - Respiratory Rate - - Oxygen Saturation 98% 05/31/2024 2:45 PM CDT Inhaled Oxygen Concentration - - Weight 146.1 kg (322 lb 1.5 oz) 05/31/2024 2:45 PM CDT Height 182.9 cm (6') 05/31/2024 2:45 PM CDT Body Mass Index 43.68 05/31/2024 2:45 PM CDT documented in this encounter Patient Instructions * Patient Instructions* Maura Appiah LPN - 05/31/2024 3:00 PM CDT Images from the original note were not included. You were seen in the ENT Clinic today by Dr. Tafoya. If you have any questions or concerns after your appointment, please contact us (see below) 2. The following recommendations have been made based upon your appointment today: -Please obtain CT scan at your convenience. We will follow up with the results once Dr. Tafoya has viewed them. We will also place the orders for surgery, with emphasis to complete in September provided CT scan is okay. How to Contact Us: Send a Checkd.In message to your provider. Our team will respond to you via Checkd.In. Occasionally, wewill need to call you to get further information. For urgent matters (Friday-Friday), call the ENT Clinic: [phone] and speak with a call center contact center team lead - they will route your call appropriately. If you'd like to speak directly with a nurse, please find our contact information below. We do our best to check voicemail frequently throughout the day, and will work to call you back within 1-2 days. For urgent matters, please use the general clinic phone numbers listed above. Merna Shepard RN Direct: [phone] Maura Akins LPN Direct: [phone] [facility] Department of Otolaryngology documented in this encounter Progress Notes * Grace Tafoya MD - 05/31/2024 3:00 PM CDT Images from the original note were not included. [facility] [address] [address] Patient: Lenny Colorado, Date of 1965 Date of Visit: 05/31/2024 Referring Provider Provider Not In System Assessment & Plan (J32.9) Chronic sinusitis, unspecified Comment: looks like polyp or inverted papilloma. He would like to wait on surgery until September when he is not as busy at work. Will order stealth CT, if no concerning findings will wait since priorbiopsy was benign. 20 minutes spent by me on the date of the encounter doing chart review, history and exam, documentation and further activities per the note. This time is in addition to separately billable procedure. Grace Tafoya MD Otolaryngology Adult Consultation HPI: Lenny Colorado is a 58 year old male seen today in the Otolaryngology Clinic for an abnormalnasal issue. He described having polyps removed in office in [place] 12 years ago. Saw [facility] recently, polyps removed in clinic except one on left. Caused blockage and sinus infection at last visit with Jason. No symptoms, breathing is ok. Blows nose every 2 hours. R is clear, left has mucous. No pain, bleeding. Current Outpatient Medications Medication Sig Dispense Refill chlorthalidone (HYGROTON) 25 MG tablet Take 25 mg by mouth daily metFORMIN (GLUCOPHAGE) 500 MG tablet 500 MG ORALLY 2 TIMES PER DAY WITH MEALS simvastatin (ZOCOR) 20 MG tablet Take 20 mg by mouth At Bedtime multivitamin w/minerals (MULTI-VITAMIN) tablet daily vitamin C (ASCORBIC ACID) 500 MG tablet Take 500 mg by mouth daily No current facility-administered medications for this visit. Allergies Allergen Reactions Varenicline Other (See Comments) Swollen throat Past Medical History: Diagnosis Date Anxiety 2019 COVID Bone and joint disord back, pelvis, leg complicat preg, childb, puerp 2009 Knees Cancer (H) 2009 Basal cell Depressive disorder 2029 COVID Earache or other ear, nose, or throat complaint 1989 TMJ Hearing problem 2014 Tinnitus History of colonic polyps 2018 10 History of steroid therapy 2022 Nasal polyps Hypertension 2009 Statin Skin disease 1989 Tinea versicolor Social History Occupational History Not on file Tobacco Use Smoking status: Former Current packs/day: 0.00 Average packs/day: 1 pack/day for 20.0 years (20.0 ttl pk-yrs) Types: Cigarettes Start date: 1991 Quit date: 11/03/2010 Years since quittin.5 Smokeless tobacco: Never Substance and Sexual Activity Alcohol use: Yes Drug use: Yes Types: Marijuana Sexual activity: Yes Partners: Female control/protection: Condom Review of Systems No data to display 14 point ROS neg other than the symptoms noted above. Physical Exam: General Assessment The patient is alert, oriented and in no acute distress. Head/Face/Scalp Grossly normal. Nose External nose is straight, skin is normal. Intranasal exam (anterior rhinoscopy) reveals normal moist mucosa, turbinate tissue without edema, erythema or crusting. Septum mainly in the midline. Left shows suspicious tissue Procedure: Endoscopy indicated for exam of sinuses Topical anesthetic/decongestant spray applied. Rigid scope used for visualization. Findings: R is clear, left shows large mass of tissue emanating from antrum, looks like inverted papilloma. Per patient this has been biopsied and is benign polyp. I do see the report in [facility]. documented in this encounter Nursing Notes * Franco Bautista - 05/31/2024 3:00 PM CDT Chief Complaint Patient presents with Consult Blood pressure (!) 155/98, pulse 94, height 1.829 m (6'), weight 146.1 kg (322 lb 1.5 oz), SpO2 98%. Franco Bautista, EMT documented in this encounter Plan of Treatment Not on file documented as of this encounter Procedures Procedure Name Priority Date/Time Associated Diagnosis Comments OH NASAL ENDOSCOPY,DX Routine 05/31/2024 8:12 PM CDT Chronic maxillary sinusitis documented in this encounter Results * CT Sinus w/o Contrast (06/08/2024 3:16 PM CDT) Anatomical Region Laterality Modality Sinus, SUBRAD CT NEURO, SUBR AD CT NEURO, UMP CT NEURO, RAD CT Computed Tomography Impressions 06/09/2024 10:52 AM CDT IMPRESSION: 1. ??Polypoid opacification of the left maxillary sinus with soft tissue extending into the nasal cavity. 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 It is progressed versus 2016. The nasal cavity component is diminished versus 2022. 2. ??Minor mucosal thickening elsewhere in the sinuses. EVELIO ZAMARRIPA MD SYSTEM ID: ??[id number] Narrative 06/09/2024 10:[address] SINUS WITHOUT CONTRAST 06/08/2024 3:16 PM INDICATION: Chronic maxillary sinusitis; Nasal congestion; Hypertrophy of nasal turbinates. TECHNIQUE: CT scan of the sinuses without contrast. Dose reduction techniques were used. CONTRAST: None. COMPARISON: CT 02/16/2017, 04/15/2023 FINDINGS: FRONTAL SINUSES: Clear. ETHMOID AIR CELLS: Minor mucosal thickening. SPHENOID SINUS: Mild to moderate circumferential mucosal thickening on the right. Trace mucosal thickening along both ostia. MAXILLARY SINUSES: Complete opacification of the left maxillary sinus with polypoid tissue extending into the adjacent nasal cavity. Progressed versus 2016. The nasal cavity component is diminished versus 2022. Trace mucosal thickening on the right. DRAINAGE PATHWAYS: The left maxillary ostium is obstructed. The other drainage pathways appear patent. NASAL CAVITIES AND SKULL BASE: Intact nasal septum deviates to the right. The left middle turbinate is partially absent or obscured by the polypoid soft tissue mass. Intact, symmetric cribriform plate. Procedure Note Evelio Zamarripa MD - 06/09/2024 CT SINUS WITHOUT CONTRAST 06/08/2024 3:16 PM INDICATION: Chronic maxillary sinusitis; Nasal congestion; Hypertrophy of nasal turbinates. TECHNIQUE: CT scan of the sinuses without contrast. Dose reduction techniques were used. CONTRAST: None. COMPARISON: CT 02/16/2017, 04/15/2023 FINDINGS: FRONTAL SINUSES: Clear. ETHMOID AIR CELLS: Minor mucosal thickening. SPHENOID SINUS: Mild to moderate circumferential mucosal thickening on the right. Trace mucosal thickening along both ostia. MAXILLARY SINUSES: Complete opacification of the left maxillary sinus with polypoid tissue extending into the adjacent nasal cavity. Progressed versus 2016. The nasal cavity component is diminished versus 2022. Trace mucosal thickening on the right. DRAINAGE PATHWAYS: The left maxillary ostium is obstructed. The other drainage pathways appear patent. NASAL CAVITIES AND SKULL BASE: Intact nasal septum deviates to the right. The left middle turbinate is partially absent or obscured by the polypoid soft tissue mass. Intact, symmetric cribriform plate. IMPRESSION: 1. Polypoid opacification of the left maxillary sinus with soft tissue extending into the nasal cavity. 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 It is progressed versus 2016. The nasal cavity component is diminished versus 2022. 2. Minor mucosal thickening elsewhere in the sinuses. EVELIO ZAMARRIPA MD SYSTEM ID: [id number] Grace Tafoya MD IMG CT ORDERABLES documented in this encounter Visit Diagnoses Diagnosis Chronic maxillary sinusitis Nasal congestion Other diseases of nasal cavity and sinuses Hypertrophy of nasal turbinates Chronic maxillary sinusitis Nasal congestion Other diseases of nasal cavity and sinuses Hypertrophy of nasal turbinates documented in this encounter Care Teams Cannoneer Relationship Specialty Start Date End Date No Ref-Primary, Physician PCP - General 04/08/23 Tran Robbins PA-C [address] [place] [id number] Assigned Surgical Provider 04/12/23 Grace Tafoya MD [address] [address] Otolaryngology 01/07/24 documented as of this encounter
--- OUTSIDE RECORDS SUMMARY | 2024-06-15 08:38 | XMS_ITS | Clinical Summary ---
Author Organization [place] Address [address] [place] [address] Care Team Providers Care Information Security Associate Name Role Phone No Ref-Primary, Physician Primary Care Provider Tran Robbins PA-C Unavailable [phone] Grace Tafoya MD Unavailable [phone] Allergies Active Allergy Reactions Criticality Noted Date Comments Varenicline Other (See Comments) 03/08/2021 Swollen throat Medications Medication Sig Dispensed Refills Start Date End Date Status vitamin C (ASCORBIC ACID) 500 MG tablet Take 500 mg by mouth daily Active multivitamin w/minerals (MULTI-VITAMIN) tablet daily Ac tive simvastatin (ZOCOR) 20 MG tablet Take 20 mg by mouth At Bedtime Active chlorthalidone (HYGROTON) 25 MG tablet Take 25 mg by mouth daily Active metFORMIN (GLUCOPHAGE) 500 MG tablet 500 MG ORALLY 2 TIMES PER DAY WITH MEALS Active Active Problems Problem Noted Date Diagnosed Date CHARLENE (obstructive sleep apnea) 04/07/2023 Last Assessment & Plan: Not currently using CPAP. Sleep study referral sent. Needs clearance for bariatric surgery. Hypertension, unspecified type 04/07/2023 Morbid obesity with BMI of 40.0-44.9, adult 03/2023 Last Assessment & Plan: 04/07/2023 325# Initial bariatric surgery. Task List created. Goal weight 320#. Will need in person education visit and exam with provider. Encounters Date Type Department Care Team Description 06/08/2024 2:40 PM CDT - 06/08/2024 11:59 PM CDT Hospital Encounter [facility] [address] [facility] [address] [place] [address] Grace Tafoya MD Chronic maxillary sinusitis; Nasal congestion; Hypertrophy of nasal turbinates Discharge Disposition: Home or Self Care 06/08/2024 Travel 06/01/[address] [facility] Insurance Verification Mallory Reeves 05/31/2024 3:00 PM CDT Office Visit [facility] [address] [phone] Grace Tafoya MD Chronic maxillary sinusitis; Nasal congestion; Hypertrophy of nasal turbinates 05/31/2024 Travel 05/31/[address] [facility] [address] [phone] Grace Tafoya MD Previsit from Last 3 Months Family History Medical History Relation Comments Hyperlipidemia Brother Thyroid Disease Brother Other Cancer Father Leukemia Coronary Artery Disease Maternal Grandfather Hypertension Mother Obesity Paternal Grandfather Relation Status Comments Brother Father Maternal Grandfather Mother Paternal Grandfather Social History Tobacco Use Types Packs/Day Years [...] on file Sexual Orientation Not on file Last Filed Vital Signs Vital Sign Reading [...] Mass Index 43.68 05/31/2024 2:45 PM CDT Plan of Treatment Health Maintenance Due Date Last Done Comments ADVANCE CARE PLANNING 1965 ANNUAL REVIEW OF HM ORDERS 1965 CT COLONOGRAPHY 1965 FIT 1965 FLEX SIG 1965 GLUCOSE 1965 LIPID 1965 YEARLY PREVENTIVE VISIT 1965 sDNA (Cologuard) 1965 COLONOSCOPY 1973 COLORECTAL CANCER SCREENING 1973 HIV SCREENING 1978 HEPATITIS C SCREENING 1981 LUNG CANCER SCREENING 2013 RSV VACCINE ( & 60+) (1 - 1-dose 60+ series) 2023 PHQ-2 (once per calendar year) 2023 INFLUENZA VACCINE (#1) 2024 3, 07/30/2022, 07/30/2022, Additional history exists DTAP/TDAP/TD IMMUNIZATION (3 - Td or Tdap) 05/18/2030 05/18/2020, 12/26/2009 ZOSTER IMMUNIZATION Completed 04/15/2021, 0 COVID-19 Vaccine Completed 08/19/2023, , 05/27/2022, Additional history exists HPV IMMUNIZATION Aged Out No longer e ligible based on patient's age to complete this topic IPV IMMUNIZATION Aged Out No longer e ligible based on patient's age to complete this topic MENINGITIS IMMUNIZATION Aged Out No l onger eligible based on patient's age to complete this topic Pneumococcal Vaccine: Pediatrics (0 to 5 Years) and At-Risk Patients (6 to 64 Years) Aged Out No longer eligible based on patient's age to complete this topic RSV MONOCLONAL ANTIBODY Aged Out No l onger eligible based on patient's age to complete this topic Procedures Procedure Name Priority Date/Time Associated Diagnosis Comments CT SINUS W/O CONTRAST Routine 06/08/2024 3:16 PM CDT Chronic maxillary sinusitis Nasal congestion Hypertrophy of nasal turbinates [place] NASAL ENDOSCOPY,DX Routine 05/31/2024 8:12 PM CDT Chronic maxillary sinusitis from Last 3 Months Results * CT Sinus w/o Contrast (06/08/2024 [...] the sinuses. EVELIO ZAMARRIPA MD SYSTEM ID: ??[id number] Narrative 06/09/2024 10:[address] SINUS [...] an antrochoanal polyp. It is progressed versus 2017. The nasal cavity component is diminished versus 2022. 2. Minor mucosal thickening elsewhere in the sinuses. EVELIO ZAMARRIPA MD SYSTEM ID: [id number] Grace Tafoya MD IMG CT ORDERABLES from Last 3 Months Care Teams Information Security Associate Relationship Specialty Start Date End Date No Ref-Primary, Physician PCP - General 04/08/23 Tran Robbins PA-C [address] [place] [address] Assigned Surgical Provider 04/12/23 Grace Tafoya MD [address] [facility] [address] [place], [place] [address] Otolaryngology 01/07/24
--- OUTSIDE RECORDS SUMMARY | 2024-06-15 08:38 | XMS_ITS | Referral Summary ---
Author Organization [place] Address [facility] [place] [address] Care Team Providers Care Soaker Meat Name Role Phone No Ref-Primary, Physician Primary Care Provider Tran Robbins PA-C Unavailable [phone] Grace Tafoya MD Unavailable [phone] Encounters Date Type Department Care Team Description 06/08/2024 Travel 06/08/2024 2:40 PM CDT - 06/08/2024 11:59 PM CDT Hospital Encounter [facility] [address] [facility] [address] [place] [address] Grace Tafoya MD Chronic maxillary sinusitis; Nasal congestion; Hypertrophy of nasal turbinates Discharge Disposition: Home or Self Care 06/01/2024 MyC Medical Advice [facility] Insurance Verification Mallory Reeves 05/31/2024 Travel 05/31/2024 PRE VISIT [facility] [address] [phone] Garce Tafoya MD Previsit 05/31/2024 3:00 PM CDT Office Visit [facility] [address] [phone] Grace Tafoya MD Chronic maxillary sinusitis; Nasal congestion; Hypertrophy of nasal turbinates from Last 3 Months Allergies Active Allergy Reactions Criticality Noted Date [...] person education visit and exam with provider. Social History Tobacco Use Types Packs/Day Years [...] 05/31/2024 2:45 PM CDT Plan of Treatment Not on file Procedures Procedure Name Priority Date/Time Associated Diagnosis Comments CT SINUS W/O CONTRAST Routine 06/08/2024 3:16 PM CDT Chronic maxillary sinusitis Nasal congestion Hypertrophy of nasal turbinates [place] NASAL ENDOSCOPY,DX Routine 05/31/2024 8:12 PM CDT [...] the sinuses. EVELIO ZAMARRIPA MD SYSTEM ID: ??[id number] Narrative 06/09/2024 10:[address] SINUS [...] the sinuses. EVELIO ZAMARRIPA MD SYSTEM ID: [id number] Grace Tafoya MD IMG CT ORDERABLES from Last 3 Months Care Teams Soaker Meat Relationship Specialty Start Date End Date No Ref-Primary, Physician PCP - General 04/08/23 Tran Robbins PA-C [address] [place] [id number] Assigned Surgical Provider 04/12/23 Grace Tafoya MD [address] [facility] [address] [place], [place] [address] Otolaryngology 01/07/24
--- OUTSIDE RECORDS SUMMARY | 2024-06-15 08:38 | XMS_ITS | Encounter Summary ---
Author Organization [place] Address [address] [facility] [place] [address] Care Team Providers Care Injection Molding Operator Name Role Phone No Ref-Primary, Physician Primary Care Provider Tran Robbins PA-C Unavailable [phone] Grace Tafoya MD Unavailable [phone] Encounter Details Date Type Department Care Team (Late st Contact Info) Description 05/09/2023 MyC Medical Advice [facility] [place] [id number] [facility] [address] [place] [phone] Janet Mathew, [employer]IDENT[employer]LE[employer] Social History Tobacco Use Types Packs/Day Years Used Date Smoking Tobacco: Former Cigarettes 1 20 1 - 11/03/2010 Smokeless Tobacco: Never Alcohol Use Standard Drinks/Week Comments Yes 0 (1 standard drink = 0.6 oz pur e alcohol) Sex and Gender Information Value Date Recorded Sex Assigned at Not on file Gender Identity Not on file Sexual Orientation Not on file documented as of this encounter Plan of Treatment Not on file documented as of this encounter Visit Diagnoses Not on filedocumented in this encounter Care Teams Injection Molding Operator Relationship Specialty Start Date End Date No Ref-Primary, Physician PCP - General 04/08/23 Tran Robbins PA-C [address] [facility] [address] [place] [id number] Assigned Surgical Provider 04/12/23 Grace Tafoya MD [address] [facility] [address] [place] [address] Otolaryngology 01/07/24 documented as of this encounter
--- OUTSIDE RECORDS SUMMARY | 2024-06-15 08:38 | XMS_ITS | Encounter Summary ---
Author Organization [place] Address [address] [facility] [address] Care Team Providers Care Operator Ground Based Air Defence Name Role Phone No Ref-Primary, Physician Primary Care Provider Tran Robbins PA-C Unavailable + [phone] Grace Tafoya MD Unavailable [phone] Encounter Details Date Type Department Care Team (Late st Contact Info) Description 06/01/2024 [facility] Medical Advice [facility] Insurance Verification Mallory Reeves Social History Tobacco Use Types Packs/Day Years [...] on filedocumented in this encounter Care Teams Operator Ground Based [employer] Defence Relationship Specialty Start Date End Date No Ref-Primary, Physician PCP - General 04/08/23 Tran Robbins PA-C [address] [place] [address] Assigned Surgical Provider 04/12/23 Grace Tafoya MD [address] [facility] [address] [place], [place] [address] Otolaryngology 01/07/24 documented as of this encounter
--- OUTSIDE RECORDS SUMMARY | 2024-06-15 08:38 | XMS_ITS | Encounter Summary ---
Author Organization [place] Address Count includes the [facility] [place] [address] Care Team Providers Care Dry Box Tender Name Role Phone No Ref-Primary, Physician Primary Care Provider Tran Robbins PA-C Unavailable + [phone] Grace Tafoya MD Unavailable [phone] Encounter Details Date Type Department Care Team (Late st Contact Info) Description 04/08/2023 My[facility] Medical Advice [place] Centralized Scheduling [facility] [place] [address] Larisa Gilbert Social History Tobacco Use Types Packs/Day Years Used Date Smoking Tobacco: Former Cigarettes 1 20 1 - 11/03/2010 Smokeless Tobacco: Never Alcohol Use Standard Drinks/Week Comments Yes 0 (1 standard drink = 0.6 oz pur e alcohol) Sex and Gender Information Value Date Recorded Sex Assigned at Not on file Gender Identity Not on file Sexual Orientation Not on file COVID-19 Exposure Response Date Recorded In the last 10 days, have yo u been in contact with someone who was confirmed or suspected to have Coronavirus/COVID-19? No / Unsure 04/07/2023 8:39 AM CDT documented as of this encounter Plan of Treatment Not on file documented as of this encounter Visit Diagnoses Not on filedocumented in this encounter Care Teams Dry Box Tender Relationship Specialty Start Date End Date No Ref-Primary, Physician PCP - General 04/08/23 Tran Robbins PA-C [address] [place] [address] Assigned Surgical Provider 04/12/23 Grace Tafoya MD [address] [place] [address] Otolaryngology 01/07/24 documented as of this encounter
--- OUTSIDE RECORDS SUMMARY | 2024-06-15 08:38 | XMS_ITS | Encounter Summary ---
Author Organization [place] Address [address] [facility] [place] [address] Care Team Providers Care Supervisor Metal Placing Name Role Phone No Ref-Primary, Physician Primary Care Provider Tran Robbins PA-C Unavailable [phone] Grace Tafoya MD Unavailable [phone] Reason for Visit * Reason Onset Date Comments Previsit 05/31/2024 Encounter Details Date Type Department Care Team (Late st Contact Info) Description 05/31/2024 PRE VISIT [facility] [address] [place] [address] Grace Tafoya MD [address] [facility] 396 [place] [address] Previsit Social History Tobacco Use Types Packs/Day Years [...] on file documented as of this encounter Miscellaneous Notes * Telephone Encounter - Halle Still - 05/31/2024 1:26 PM CDT 05/31/2024 1:26PM. Disks were received by Jason MURPHY and were sent to Deja to be processed. S.O. * Telephone Encounter - Chichi Lucas - 03/02/2024 12:38 PM CDT FUTURE VISIT INFORMATION FUTURE VISIT INFORMATION: Date: 05/31/24 Time: 3 PM Location: [facility] - ENT REFERRAL INFORMATION: Referring provider: Chago Loyola Referring providers clinic: [facility] Reason for visit/diagnosis: Chronic sinusitis, unspecified [J32.9]; Nasal congestion [R09.81]; Hypertrophy of nasal turbinates [J34.3] REF BY Chago Loyola affiliated with [facility]. RECS IN [facility] CONF LOC SCHED W/PT UNABLE TO COMPLETE REG AND CLOSING REMINDERS BEFORE PT HUNG UP RECORDS REQUESTED FROM Clinic name Comments Records Status Imaging Status [facility] 01/01/24 referral/ note- Chago Loyola PA-C 05/15/23 note- Jan Champion MD Images: CT Scan April 15 2023 [facility] Trackin Scanned in [facility] Pending 05/27/24 [facility] 05/15/23 Case: [id number] Nasal Cavity, Left Anterior Body of Inferior Turbinate, Exc[facility] [place] Images: CT Head WO - 02/16/17 Req 05/28/24 PACS May 27, 2024 10:50 AM - Faxed a request to [facility] to send imaging disc - Ruchi May 28, 2024 10:41 AM - Request faxed to Alber for images to be pushed to PACS. - Nupur May 28, 2024 3:22 PM - Checked tracking for images from [facility]. Images are in Transit. - Nupur May 31, 2024 4:04 PM Called [facility] and was sent to so left a message - Ruchi June 01, 2024 9:07 AM - Received image in pacs and attached it to patient- Ruchi documented in this encounter Plan of Treatment Not on file documented as of this encounter Visit Diagnoses Not on filedocumented in this encounter Care Teams Supervisor Metal Placing Relationship Specialty Start Date End Date No Ref-Primary, Physician PCP - General 04/08/23 Tran Robbins PA-C [address] [facility] [address] [place] [address] Assigned Surgical Provider 04/12/23 Grace Tafoya MD [address] [facility] [address] [place], [place] [address] Otolaryngology 01/07/24 documented as of this encounter
--- OUTSIDE RECORDS SUMMARY | 2024-06-15 08:38 | XMS_ITS | Encounter Summary ---
Author Organization [place] Address [address] [facility] [place] [address] Care Team Providers Care Furniture Upholstery Mechanic Name Role Phone No Ref-Primary, Physician Primary Care Provider Tran Robbins PA-C Unavailable [phone] Grace Tafoya MD Unavailable [phone] Encounter Details Date Type Department Care Team (Latest Contact Info) Description 06/08/2024 Travel Social History Tobacco Use Types Packs/Day [...] on filedocumented in this encounter Care Teams Furniture Upholstery Mechanic Relationship Specialty Start Date End Date No Ref-Primary, Physician PCP - General 04/08/23 Tran Robbins PA-C [address] [place] [id number] Assigned Surgical Provider 04/12/23 Grace Tafoya MD [address] [facility] [address] [place], [place] [address] Otolaryngology 01/07/24 documented as of this encounter
--- OUTSIDE RECORDS SUMMARY | 2024-06-15 08:38 | XMS_ITS | Clinical Summary ---
Author Organization [facility] Address [place], [place] [address] Care Team Providers Care Bindery Technician Name Role Phone Pcp, No Primary Care Provider Unavailabl e Allergies Active Allergy Reactions Criticality Noted Date Comments Varenicline *Unknown 03/08/2021 Swollen throat Medications Medication Sig Dispensed Refills Start Date End Date Status amLODIPine (NORVASC) 5 mg tablet Take 5 mg by mouth once daily. Active metFORMIN (GLUCOPHAGE) 500 mg tablet Take 500 mg by mouth two times daily with meals. 09/10/2023 Active chlorthalidone (HYGROTON) 25 mg tablet Take 25 mg by mouth once daily. Active simvastatin (ZOCOR) 20 mg tablet TAKE 1 TABLET (20 MG) BY MOUTH BEDTIME Active Active Problems Problem Noted Date Diagnosed Date Hypertensive disease 04/07/2023 Morbid obesity with BMI of 40.0-44.9, adult 06/0 03/2023 Overview: Last Assessment & Plan: 04/07/2023 325# Initial bariatric surgery. Task List created. Goal weight 320#. Will need in person education visit and exam with provider. Obstructive sleep apnea syndrome 05/10/2021 Overview: Last Assessment & Plan: Not currently using CPAP. Sleep study referral sent. Needs clearance for bariatric surgery. Social History Tobacco Use Types Packs/Day Years Used Date Smoking Tobacco: Never Assessed Sex and Gender Information Value Date Recorded Sex Assigned at Not on file Gender Identity Not on file Sexual Orientation Not on file Last Filed Vital Signs Vital Sign Reading Time Taken Comments Blood Pressure 131/83 10/10/2023 11:13 AM CIVIL ENGINEER LAND DEVELOPMENT Pulse 95 10/10/2023 11:13 AM CIVIL ENGINEER [employer]AND DEVELOPMENT Temperature 36.1 ??C (96.9 ??F) 10/10/2023 11:[address] Respiratory Rate 16 10/10/2023 11:11 AM CIVIL ENGINEER LAND DEVELOPMENT Oxygen Saturation 96% 10/10/2023 11:13 AM CIVIL ENGINEER LAND DEVELOPMENT Inhaled Oxygen Concentration - - Weight 145.2 kg (320 lb) 10/10/2023 11:13 AM CIVIL ENGINEER LAND DEVELOPMENT Height - - Body Mass Index - - Plan of Treatment Health Maintenance Due Date Last Done Comments Tdap 1974 Depression screening for age 12+ 1975 HIV for age 15-65 1978 BMI (ht and wt on same day) for age 18+ 1981 Hepatitis C screening for age 18-79 1981 Tetanus booster 1983 Colonoscopy through age 75 2008 Lipids for age 45-75 2008 Zoster (shingles) series for age 50+ (1 of 2) 2013 Influenza for age 50-64 07/04/2024 COVID-19 vaccine series Completed 08/19/20 23, 07/30/2022, 05/27/2022, Additional history exists Pneumococcal series for age 6-64 Aged Out No longer eligible based on patient's age to complete this topic Care Teams Bindery Technician Relationship Specialty Start Date End Date Pcp, No . PCP - General 08/14/11
--- OUTSIDE RECORDS SUMMARY | 2024-06-15 08:38 | XMS_ITS | Encounter Summary ---
Author Organization [place] Address [address] [facility] [place] [address] Care Team Providers Care Care Partner Name Role Phone No Ref-Primary, Physician Primary Care Provider Tran Robbins PA-C Unavailable [phone] Grace Tafoya MD Unavailable [phone] Encounter Details Date Type Department Care Team (Late st Contact Info) Description 04/07/2023 [facility] [place] [id number] [facility] [address] [place] [address] [facility] Social History Tobacco Use Types Packs/Day Years [...] on filedocumented in this encounter Care Teams Care Partner Relationship Specialty Start Date End Date No Ref-Primary, Physician PCP - General 04/08/23 Tran Robbins PA-C [address] [facility] [address] [place] [address] Assigned Surgical Provider 04/12/23 Grace Tafoya MD [address] [address] Otolaryngology 01/07/24 documented as of this encounter
--- OUTSIDE RECORDS SUMMARY | 2024-06-15 08:38 | XMS_ITS | Encounter Summary ---
Author Organization [place] Address [address] [facility] [place] [address] Care Team Providers Care Cosmetic Surgeon Name Role Phone No Ref-Primary, Physician Primary Care Provider Tran Robbins PA-C Unavailable [phone] Grace Tafoya MD Unavailable [phone] Reason for Referral * Diagnostic Imaging CT Scan (Routine) - Closed Specialty Diagnoses / Procedures Referred By Contac t Referred To Contact Radiology. Diagnoses Chronic sinusitis, unspecified Nasal congestion Hypertrophy of nasal turbinates Procedures CT Sinus w/o Contrast Grace Tafoya MD [address] [place] [address] [address] [facility] [address] [place], [place] [address] [address] [address] Referral ID Status Reason Start Date Expiration Date Visits Re quested Visits Authorized [id number] Closed 05/31/2024 05/31/2025 1 1 Reason for Visit * Diagnostic Imaging CT Scan (Routine) - Closed Specialty Diagnoses / Procedures Referred By Contac t Referred To Contact Radiology. Diagnoses Chronic sinusitis, unspecified Nasal congestion Hypertrophy of nasal turbinates Procedures CT Sinus w/o Contrast Grace Tafoya MD [address] [place] [address] [place] [id number] [place] [facility] [address] [place] [address] Referral ID Status Reason Start Date Expiration Date Visits Re quested Visits Authorized [id number] Closed 05/31/2024 05/31/2025 1 1 Encounter Details Date Type Department Care Team (Latest Contact Info) Description 06/08/2024 2:40 PM CDT - 06/08/2024 11:59 PM CDT Hospital Encounter [facility] [address] [facility] [address] [place] [address] Grace Tafoya MD [address] [facility] 396 [place] [address] Chronic maxillary sinusitis; Nasal congestion; Hypertrophy of nasal turbinates Discharge Disposition: Home or Self Care Social History Tobacco Use Types Packs/Day Years [...] on file documented as of this encounter Medications at Time of Discharge Medication Sig Dispensed Refills Start Date End Date chlorthalidone (HYGROTON) 25 MG tablet Take 25 mg by mouth daily metFORMIN (GLUCOPHAGE) 500 MG tablet 500 MG ORALLY 2 TIMES PER DAY WITH MEALS multivitamin w/minerals (MULTI-VITAMIN) tablet daily simvastatin (ZOCOR) 20 MG tablet Take 20 mg by mouth At Bedtime vitamin C (ASCORBIC ACID) 500 MG tablet Take 500 mg by mouth daily documented as of this encounter Plan of Treatment Not on file documented as of this encounter Procedures Procedure Name Priority Date/Time Associated Diagnosis Comments CT SINUS W/O CONTRAST Routine 06/08/2024 3:16 PM CDT Chronic maxillary sinusitis Nasal congestion Hypertrophy of nasal turbinates documented in this encounter Results * CT [...] the sinuses. EVELIO ZAMARRIPA MD SYSTEM ID: [id number] Narrative 06/09/2024 10:[address] SINUS [...] the sinuses. EVELIO ZAMARRIPA MD SYSTEM ID: [id number] Grace Tafoya MD IMG CT ORDERABLES documented in this encounter Visit Diagnoses Diagnosis Chronic maxillary sinusitis Nasal congestion Other diseases of nasal cavity and sinuses Hypertrophy of nasal turbinates documented in this encounter Care Teams Cosmetic Surgeon Relationship Specialty Start Date End Date No Ref-Primary, Physician PCP - General 04/08/23 Tran Robbins PA-C [address] [facility] [place] [address] Assigned Surgical Provider 04/12/23 Grace Tafoya MD [address] [place] [address] [address] [place], [place] [address] Otolaryngology 01/07/24 documented as of this encounter
--- OUTSIDE RECORDS SUMMARY | 2024-06-15 08:39 | XMS_ITS | Encounter Summary ---
Author Organization [place] Address [address] [facility] [place] [address] Care Team Providers Care Concrete Block Maker Name Role Phone No Ref-Primary, Physician Primary Care Provider Tran Robbins PA-C Unavailable [phone] Grace Tafoya MD Unavailable [phone] Encounter Details Date Type Department Care Team (Late st Contact Info) Description 04/01/2023 [facility] Weight Loss Clinic [place] [id number] [facility] [address] [place] [address] [facility] Social History Tobacco Use Types Packs/Day Years Used Date Smoking Tobacco: Never Assessed Sex and Gender Information Value Date Recorded Sex Assigned at Not on file Gender Identity Not on file Sexual Orientation Not on file COVID-19 Exposure Response Date Recorded In the last 10 days, have yo u been in contact with someone who was confirmed or suspected to have Coronavirus/COVID-19? Unable to assess 04/03/2023 7:46 AM CDT documented as of this encounter Plan of Treatment Not on file documented as of this encounter Visit Diagnoses Not on filedocumented in this encounter Care Teams Concrete Block Maker Relationship Specialty Start Date End Date No Ref-Primary, Physician PCP - General 04/08/23 Tran Robbins PA-C [address] [facility] [address] [place] [address] Assigned Surgical Provider 04/12/23 Grace Tafoya MD [address] [address] Otolaryngology 01/07/24 documented as of this encounter
--- OUTSIDE RECORDS SUMMARY | 2024-06-15 08:39 | XMS_ITS | Encounter Summary ---
Author Organization [place] Address [address] [facility] [place] [address] Care Team Providers Care Seam Rubber Name Role Phone No Ref-Primary, Physician Primary Care Provider Tran Robbins PA-C Unavailable [phone] Grace Tafoya MD Unavailable [phone] Encounter Details Date Type Department Care Team (Late st Contact Info) Description 03/25/2023 MyC Medical Advice Initial Department Sridhar Fletcher Social History Tobacco Use Types Packs/Day Years Used Date Smoking Tobacco: Never Assessed Sex and Gender Information Value Date Recorded Sex Assigned at Not on file Gender Identity Not on file Sexual Orientation Not on file documented as of this encounter Plan of Treatment Not on file documented as of this encounter Visit Diagnoses Not on filedocumented in this encounter Care Teams Seam Rubber Relationship Specialty Start Date End Date No Ref-Primary, Physician PCP - General 04/08/23 Tran Robbins PA-C [address] [facility] [address] [place], [place] [address] Assigned Surgical Provider 04/12/23 Grace Tafoya MD [address] [facility] 396 [place] [address] Otolaryngology 01/07/24 documented as of this encounter
--- OUTSIDE RECORDS SUMMARY | 2024-06-15 08:39 | XMS_ITS | Encounter Summary ---
Author Organization [place] Address [address] [facility] [place] [address] Care Team Providers Care Beef Lugger Name Role Phone No Ref-Primary, Physician Primary Care Provider Tran Robbins PA-C Unavailable [phone] Grace Tafoya MD Unavailable [phone] Encounter Details Date Type Department Care Team (Late st Contact Info) Description 03/25/2023 [facility] Medical Advice [facility] [place] [address] [place] [phone] Emiliana Saldana MA Social History Tobacco Use Types Packs/Day Years Used Date Smoking Tobacco: Never Assessed Sex and Gender Information Value Date Recorded Sex Assigned at Not on file Gender Identity Not on file Sexual Orientation Not on file documented as of this encounter Plan of Treatment Not on file documented as of this encounter Visit Diagnoses Not on filedocumented in this encounter Care Teams Beef Lugger Relationship Specialty Start Date End Date No Ref-Primary, Physician PCP - General 04/08/23 Tran Robbins PA-C [address] [place] [address] Assigned Surgical Provider 04/12/23 Grace Tafoya MD 420 [facility] 396 [place], [place] [address] Otolaryngology 01/07/24 documented as of this encounter
--- OUTSIDE RECORDS SUMMARY | 2024-06-15 08:39 | XMS_ITS | Encounter Summary ---
Author Organization [place] Address [address] [facility] [place] [address] Care Team Providers Care Income Tax Analyst Name Role Phone No Ref-Primary, Physician Primary Care Provider Tran Robbins PA-C Unavailable [phone] Grace Tafoya MD Unavailable [phone] Encounter Details Date Type Department Care [...] on filedocumented in this encounter Care Teams Income Tax Analyst Relationship Specialty Start Date End Date No Ref-Primary, Physician PCP - General 04/08/23 Tran Robbins PA-C [address] [facility] [address] [place], [place] [address] Assigned Surgical Provider 04/12/23 Grace Tafoya MD [address] [facility] 396 [place] [address] Otolaryngology 01/07/24 documented as of this encounter
== END 2024-06-10 10:03 | disposition home or self-care (01) ==
LOC: NFLDREF 06-15 08:36
PROVIDERS: PCP Family Medicine; Referring Provider Family Medicine; Visit Provider Family Medicine
DX: E78.5 Hyperlipidemia, unspecified (principal); I10 Essential (primary) hypertension; Z12.5 Encounter for screening for malignant neoplasm of prostate
CPT/HCPCS: 80053; 80061; G0103